=== PATIENT | female | born 1935 | race Caucasian/White ===

== ENCOUNTER → 2016-07-04 | Outpatient (CLI) | payer MEDICARE | LOC: GMAL 11:36 | PROVIDERS: ATTEND Family Medicine | DX: E55.9 Vitamin D deficiency, unspecified (principal) ==

== ENCOUNTER → 2017-01-03 | Outpatient (CLI) | payer MEDICARE | END | disposition home or self-care (01) | LOC: GMAL 12:01 | PROVIDERS: ATTEND Family Medicine | DX: D51.3 Other dietary vitamin B12 deficiency anemia (principal) ==

== ENCOUNTER → 2017-01-22 | Outpatient (CLI) | payer MEDICARE | LOC: MAMMO 15:39 | PROVIDERS: ATTEND Family Medicine | DX: Z12.31 Encounter for screening mammogram for malignant neoplasm of breast (principal) | CPT/HCPCS: G0202; G0279 ==

== ENCOUNTER → 2017-02-11 | Outpatient (CLI) | payer MEDICARE ==
--- NOTE | 2017-02-13 16:40 | US ---
EXAM DESCRIPTION: Breast,Left CLINICAL HISTORY: 81 years Female, January 22, 2017 mammogram COMPARISON: None. FINDINGS: Ultrasound of the area of interest in the central portion of the breast just medial to the median nipple line on the mammogram shows scattered areas of fibrous glandular tissue. No solid, cystic, or worrisome abnormality is observed. IMPRESSION: BIRAD CATEGORY: 1 NEGATIVE Electronically signed by: Davis Brothers MD 02/13/2017 4:39 PM CDT
== END ==
LOC: MAMMO 12:56
PROVIDERS: ATTEND Family Medicine
DX: R92.8 Other abnormal and inconclusive findings on diagnostic imaging of breast (principal)

== ENCOUNTER → 2017-07-09 | Outpatient (CLI) | payer MEDICARE | END | disposition home or self-care (01) | LOC: GMAL 11:25 | PROVIDERS: ATTEND Family Medicine | DX: D51.3 Other dietary vitamin B12 deficiency anemia (principal); E55.9 Vitamin D deficiency, unspecified ==

== ENCOUNTER → 2018-02-20 | Outpatient (CLI) | payer MEDICARE ==
--- NOTE | 2018-02-24 11:02 | US ---
Thyroid Ultrasound Biopsy CLINICAL INFORMATION: Thyroid ultrasound 02/11/2018. 1.6 cm nodule right lower lobe. TECHNIQUE: Procedure was explained to the patient with risks and benefits. The patient gave verbal and written consent. Sterile preparation draping. 1% xylocaine dermal anesthetic 9-1 mixture with sodium bicarbonate. Sterile ultrasound guidance. A total of 6 passes right lower lobe solid nodule; 3 needle samplings with a separate 1.5 inch, 25-gauge needle per sample, and 3 aspirations, with a separate 1.5 inch, 25-gauge needle/10-cc syringe set, per aspiration. Each sample was placed on a separate slide and fixed in 95% alcohol container. Saccomanno fluid drawn into aspirate needle and rinse injected into Saccomanno container. Specimens to be sent for pathologic examination at remote facility. . Patient tolerated procedure well. Biopsy #: 1 Nodule reference number based on prior diagnostic ultrasound:1 Maximum size: 1.6 cm Location: right; lower ACR TI-RADS risk category: TR4 (4-6 points) Reason for biopsy: meets ACR TI-RADS criteria Complications: None. n/a IMPRESSION: Successful ultrasound guided fine needle aspiration of solid thyroid nodule, right lower thyroid lobe. Pathology results pending at remote laboratory. Electronically signed by: Franco Rice MD 02/24/2018 11:01 AM CDT
== END ==
LOC: US 15:51
PROVIDERS: ATTEND Family Medicine
DX: E04.8 Other specified nontoxic goiter (principal)

== ENCOUNTER 2018-11-05 05:38 | Day surgery (SDC) | payer MEDICARE ==
[2018-11-05] MEDS ORDERED: LACTATED RINGERS 1,000 ML ONE (07:05)
[2018-11-05] MEDS ORDERED: PROPOFOL 200 MG/20 ML VIAL IV ONE (07:05)
[2018-11-05] MEDS ORDERED: LIDOCAINE 1% 10 ML VIAL INJ ONE (07:05)
--- NOTE | 2018-11-05 10:08 | OP ---
DATE OF PROCEDURE: 11/05/18 PREOPERATIVE DIAGNOSIS: 1. Positive Cologuard. POSTOPERATIVE DIAGNOSIS: 1. Colonic polyps. 2. Diverticulosis. PROCEDURE: 1. Colonoscopy plus polypectomy. SURGEON: Lorne Rudd MD. COMPLICATIONS: None apparent. BLOOD LOSS: None. MEDICATIONS: Monitored anesthesia care. DESCRIPTION OF PROCEDURE: Informed consent was obtained prior to sedation. The preprocedure cardiopulmonary assessment was satisfactory. The patient was placed in the left lateral decubitus position and was sedated. A digital rectal exam was performed and was unremarkable. The tip of the Olympus colonoscope was inserted in the rectum and guided over to the cecum. The cecum was identified by locating the ileocecal valve and appendiceal orifice. A retroflexed view of the right colon was obtained with the scope once I reached the cecum. Prep was good. The mucosa of the cecum, ascending colon, hepatic flexure, transverse colon, splenic flexure, descending colon and sigmoid colon was closely examined. Direct and retroflexed views of the rectum were obtained. The patient had three polyps. One was in the transverse colon and was 7 mm in diameter. This sessile polyp was removed with a hot snare and recovered. There were two smaller polyps in the descending colon. These were 4 mm in size and sessile. They were both removed with a cold snare and recovered. The patient has sigmoid diverticulosis. Otherwise, her colonoscopy was unremarkable. RECOMMENDATIONS: 1. Followup polyp pathology. 2. The patient should not need any followup colon cancer screening since she is now 82. 3. I would be happy to see her in the office if GI symptoms develop. #[id number] cc: Brad Samson MD MTDD
[2018-11-05 13:01] VITALS: BP 126/77; TEMP 97.1; O2SAT 95
== END 2018-11-05 10:15 | disposition home or self-care (01) ==
LOC: AMB 05:38
PROVIDERS: ATTEND Internal Medicine Gastroenterology
DX: R19.5 Other fecal abnormalities (principal); D12.4 Benign neoplasm of descending colon; K57.30 Diverticulosis of large intestine without perforation or abscess without bleeding; I10 Essential (primary) hypertension; J44.9 Chronic obstructive pulmonary disease, unspecified
CPT/HCPCS: 00811; 45385; 88305; J3490; J7120

== ENCOUNTER → 2018-12-02 | Outpatient (CLI) | payer MEDICARE | LOC: GMAL 10:09 | PROVIDERS: ATTEND Family Medicine | DX: D51.3 Other dietary vitamin B12 deficiency anemia (principal); E04.8 Other specified nontoxic goiter; E55.9 Vitamin D deficiency, unspecified; I10 Essential (primary) hypertension; E11.9 Type 2 diabetes mellitus without complications; E78.49 Other hyperlipidemia ==

== ENCOUNTER → 2020-01-11 | Outpatient (CLI) | payer MEDICARE | LOC: GMAL 10:30 | PROVIDERS: ATTEND Family Medicine | DX: D51.3 Other dietary vitamin B12 deficiency anemia (principal); R53.82 Chronic fatigue, unspecified; E55.9 Vitamin D deficiency, unspecified; I10 Essential (primary) hypertension; E78.49 Other hyperlipidemia ==

== ENCOUNTER → 2020-07-20 | Outpatient (CLI) | payer MEDICARE | LOC: GMAL 10:37 | PROVIDERS: ATTEND Family Medicine | DX: D51.3 Other dietary vitamin B12 deficiency anemia (principal); R53.82 Chronic fatigue, unspecified; E55.9 Vitamin D deficiency, unspecified; I10 Essential (primary) hypertension ==